=== PATIENT | female | born 2000 ===

== ENCOUNTER 2022-06-28 17:31 | Inpatient (IN) | payer MEDICAID, OTHER ==
[~2022-06-28] VITALS: Ht 154.9 cm; Wt 48.9 kg
[2022-06-28] MEDS ORDERED: ALBUTEROL SULF 2.5 MG/0.5ML(0.5%) NEB SOLN NEB ONE ×3 (17:45→20:45)
[2022-06-28] MEDS ORDERED: IPRATROPIUM BROM 0.5 MG/2.5ML INH SOL NEB ONE (17:45)
[2022-06-28 18:12] LABS: Basophils # (auto) 0.1 10 ^3/uL (0-0.2); Basophils % (auto) 0.6 % (0.0-2.0); Eosinophils # (auto) 0.2 10 ^3/uL (0-0.8); Eosinophils % (auto) 2.3 % (0.0-7.0); Hematocrit 44.7 % (36.0-46.0); Hemoglobin 15.6 g/dL (12.2-16.2); Lymphocytes # (auto) 1.1 10 ^3/uL (0.4-5.4); Lymphocytes % (auto) 11.1 % (10.0-50.0); Mean Corpuscular Hemoglobin 31.3 pg (28.0-32.0); Mean Corpuscular Hgb Conc. 34.8 g/dL (32.0-36.0); Mean Corpuscular Volume 89.8 fL (80.0-100.0); Monocytes # (auto) 0.6 10 ^3/uL (0-1.3); Monocytes % (auto) 6.4 % (0.0-12.0); Neutrophils # (auto) 8.1 10 ^3/uL (1.6-8.6); Neutrophils % (auto) 79.6 % (37.0-80.0); Red Blood Cells 4.98 10^6/uL (4.0-5.20); Red Cell Distribution Width 13.2 % (11.8-14.3); White Blood Cell 10.1 10^3/uL (4.4-10.8)
[2022-06-28] MEDS ORDERED: SODIUM CHLORIDE 0.9% 1,000 ML IV ONE (18:30)
[2022-06-28 18:35] LABS: Albumin 4.7 g/dL (3.4-5.0); Calcium 9.7 mg/dL (8.5-10.1); Potassium 3.6 mmol/L (3.5-5.1)
[2022-06-28 18:44] LABS: BUN/Creatinine Ratio 13.3 (10.0-20.0); Bilirubin, Total 0.7 mg/dL (0.2-1.0); Total Protein 8.5 g/dL (6.4-8.2)
[2022-06-28] MEDS ORDERED: DexAMETHasone SOD PHOS 10MG/1ML VIAL INJ IV ONE (18:45)
[2022-06-28] MEDS: MAGNESIUM SULFATE 1GM/100ML 100 ML IV SCH ×2 (19:06→19:46)
[2022-06-28] MEDS ORDERED: ACETAMINOPHEN 325 MG TAB PO PRN (21:00)
[2022-06-28] MEDS ORDERED: ALBUTEROL SULF 2.5 MG/0.5ML(0.5%) NEB SOLN NEB PRN (21:00)
[2022-06-28] MEDS ORDERED: HYDROCORTONE 1% TOPICAL CREAM 30 GM TUBE TOP ONE (21:00)
[2022-06-28] MEDS ORDERED: SODIUM CHLORIDE 0.9% 1,000 ML IV SCH (21:00)
[2022-06-28 21:06] VITALS: BP 126/85
[2022-06-28] MEDS: IPRATROPIUM BROM 0.5 MG/2.5ML INH SOL NEB SCH (21:48)
[2022-06-28] MEDS: ALBUTEROL SULF 2.5 MG/0.5ML(0.5%) NEB SOLN NEB SCH (21:48)
[2022-06-28] MEDS: HYDROCORTONE 1% TOPICAL CREAM 30 GM TUBE TOP SCH (22:00)
[2022-06-28] MEDS: methylPREDNISolone SOD SUCC 125 MG/2 ML VL IV SCH (22:12)
[2022-06-29] MEDS: IPRATROPIUM BROM 0.5 MG/2.5ML INH SOL NEB SCH ×3 (02:05→10:12)
[2022-06-29] MEDS: ALBUTEROL SULF 2.5 MG/0.5ML(0.5%) NEB SOLN NEB SCH ×3 (02:05→10:12)
[2022-06-29 07:01] LABS: Basophils # (auto) 0 10 ^3/uL (0-0.2); Basophils % (auto) 0.1 % (0.0-2.0); Eosinophils # (auto) 0 10 ^3/uL (0-0.8); Hematocrit 40.6 % (36.0-46.0); Lymphocytes # (auto) 0.5 10 ^3/uL (0.4-5.4); Lymphocytes % (auto) 9.9 % (10.0-50.0); Mean Corpuscular Hemoglobin 30.8 pg (28.0-32.0); Mean Corpuscular Hgb Conc. 34.4 g/dL (32.0-36.0); Mean Corpuscular Volume 89.5 fL (80.0-100.0); Monocytes # (auto) 0.1 10 ^3/uL (0-1.3); Monocytes % (auto) 2.1 % (0.0-12.0); Neutrophils # (auto) 4.7 10 ^3/uL (1.6-8.6); Neutrophils % (auto) 87.9 % (37.0-80.0); Nucleated Red Blood Cells % 0.2 %; Red Blood Cells 4.53 10^6/uL (4.0-5.20); Red Cell Distribution Width 13.3 % (11.8-14.3); White Blood Cell 5.4 10^3/uL (4.4-10.8)
[2022-06-29 07:04] LABS: Albumin 4.2 g/dL (3.4-5.0); BUN/Creatinine Ratio 8.9 (10.0-20.0); Calcium 9.2 mg/dL (8.5-10.1); Potassium 3.6 mmol/L (3.5-5.1)
[2022-06-29 07:07] LABS: Bilirubin, Total 0.5 mg/dL (0.2-1.0); Total Protein 7.8 g/dL (6.4-8.2)
[2022-06-29] MEDS: HYDROCORTONE 1% TOPICAL CREAM 30 GM TUBE TOP SCH (10:00)
[2022-06-29] MEDS ORDERED: LORATADINE 10 MG TAB PO SCH (10:15)
[2022-06-29] MEDS: methylPREDNISolone SOD SUCC 125 MG/2 ML VL IV SCH (10:39)
[2022-06-29] MEDS ORDERED: CETI10CA PO (10:47)
[2022-06-29] MEDS ORDERED: FLUT110A INH (10:47)
[2022-06-29] MEDS ORDERED: ALBUAER3 IN (10:47)
[2022-06-29] MEDS ORDERED: MONT-8 PO (10:47)
[2022-06-29] MEDS ORDERED: PRED20TA2 PO (10:47)
[2022-06-29 12:00] VITALS: BP 128/87
[2022-06-29] MEDS ORDERED: MONTELUKAST SODIUM 10 MG TAB PO SCH (22:00)
== END 2022-06-29 12:39 | disposition home or self-care (01) | DRG 133 ==
LOC: ER 17:31 → OVERFLOW 21:02
PROVIDERS: ADMIT Nurse Practitioner Family; ATTEND Nurse Practitioner
DX: J96.00 Acute respiratory failure, unspecified whether with hypoxia or hypercapnia (principal); J45.901 Unspecified asthma with (acute) exacerbation
CPT/HCPCS: 36415; 71046; 80053; 84702; 85025; 94640; 96361; 96365; 96366; 96374; G0378; J1100

== ENCOUNTER 2023-06-14 00:48 | Inpatient (IN) | payer MEDICAID ==
[2023-06-14] VITALS (8 sets, daily range): BP systolic 118–143; BP diastolic 80–93; PULSE 77–130; RESP 16–24; TEMP 98.2–99.4; O2SAT 92–97
[~2023-06-14] VITALS: Ht 154.9 cm; Wt 52.0 kg
[~2023-06-14 00:48] MED LIST: ALBUAER3 IN; CETI10CA PO; FLUT110A INH; MONT-8 PO; PRED20TA2 PO
[2023-06-14 01:28] LABS: Hematocrit 47.4 % (36.0-46.0); Hemoglobin 16.2 g/dL (12.2-16.2); Mean Corpuscular Hemoglobin 31.7 pg (28.0-32.0); Mean Corpuscular Hgb Conc. 34.2 g/dL (32.0-36.0); Mean Corpuscular Volume 92.8 fL (80.0-100.0); Red Blood Cells 5.11 10^6/uL (4.0-5.20); White Blood Cell 6.4 10^3/uL (4.4-10.8)
[2023-06-14 01:29] LABS: Basophils % (manual) 0 (0.0-2.0); Blast Cells 0; Eosinophils % (manual) 0 (0-7); Metamyelocytes % 0; Monocytes % (manual) 0 (0-12); Myelocytes % 0; Promyelocytes % 0; Reactive Lymphocytes 0
[2023-06-14 01:43] LABS: Alanine Aminotransferase 20 U/L (7-40); Albumin 5.4 g/dL (3.2-4.8); Alkaline Phosphatase 52 U/L (46-116); Anion Gap 12 (5-15); Aspartate Aminotransferase 20 U/L (13-40); Calcium 10.8 mg/dL (8.7-10.4); Carbon Dioxide 21 mmol/L (20-30); Chloride 105 mmol/L (98-107); Glucose 129 mg/dL (74-106); Potassium 3.7 mmol/L (3.5-5.1); Sodium 138 mmol/L (136-145)
[2023-06-14 01:44] LABS: Bilirubin, Total 0.7 mg/dL (0.2-1.0); Total Protein 9.2 g/dL (5.7-8.2)
[2023-06-14 01:46] LABS: BUN/Creatinine Ratio 6.8 (10.0-20.0); Blood Urea Nitrogen < 5 mg/dL (9-23)
[2023-06-14 01:53] LABS: Band Neutrophils % (manual) 1; Lymphocytes % (manual) 5 (10.0-50.0); Platelet Estimate Adequate; RBC Morphology Normal
[2023-06-14 01:53] LABS: Urine Bacteria None Seen /hpf (None Seen)
[2023-06-14 02:14] LABS: Amphetamine Screen, Urine Neg (NEGATIVE); Barbiturate Scree,Urine Neg (NEGATIVE); Benzodiazephine Screen, Urine Neg (NEGATIVE); Cannabinoid Screen, Urine Pos (NEGATIVE); Cocaine Screen, Urine Neg (NEGATIVE); Opiate Scree,Urine Neg (NEGATIVE); Phencyclidine Screen, Urine Neg (NEGATIVE); Urine Blood 2+ /uL (Negative); Urine Clarity Clear (Clear); Urine Color Yellow (Yellow); Urine Hyaline Cast FEW /lpf (0 - 2); Urine Mucus FEW (None Seen); Urine Protein, UAD 1+ (Negative); Urine Specific Gravity 1.026 (1.001-1.035); Urine Urobilinogen Normal (Negative); Urine WBC 1 /hpf (0 - 5)
[2023-06-14] MEDS: SODIUM CHLORIDE 0.9% 1,000 ML IV ONE (07:00)
[2023-06-14] MEDS ORDERED: IPRATROPIUM BROM 0.5 MG/2.5ML INH SOL NEB ONE (07:00)
[2023-06-14] MEDS ORDERED: BUDESONIDE (INHALATION) 0.5 MG/2 ML NEB NEB ONE (07:00)
[2023-06-14] MEDS: LORazepam 2MG/ML-1ML VIAL ONE (07:28)
[2023-06-14] MEDS: MAGNESIUM SULFATE 1GM/100ML 100 ML IV ONE ×2 (07:30→08:32)
[2023-06-14] MEDS: DexAMETHasone SOD PHOS 10MG/1ML VIAL INJ ONE (07:32)
[2023-06-14] MEDS: DexAMETHasone SOD PHOS 10MG/1ML VIAL INJ IV ONE (07:33)
[2023-06-14] MEDS: LORazepam 2MG/ML-1ML VIAL IV ONE (07:33)
[2023-06-14] MEDS: MAGNESIUM SULFATE 1GM/100ML 100 ML IV SCH (07:33)
[2023-06-14] MEDS: ONDANSETRON HCL 4 MG/2 ML VIAL ONE (07:53)
[2023-06-14] MEDS ORDERED: LEVALBUTEROL HCL 1.25 MG/3 ML NEB NEB SCH (12:00)
[2023-06-14] MEDS ORDERED: NITROGLYCERIN 0.4 MG SL TAB SL PRN (12:30)
[2023-06-14] MEDS ORDERED: ONDANSETRON HCL 4 MG/2 ML VIAL IV PRN (12:30)
[2023-06-14] MEDS ORDERED: MORPHINE SULFATE INJ 2 MG/ml SYRG IV PRN (12:30)
[2023-06-14] MEDS ORDERED: TEMAZEPAM 15 MG CAP PO PRN (12:30)
[2023-06-14] MEDS ORDERED: HYDROcodone-ACET 5/325MG TAB PO PRN (12:30)
[2023-06-14] MEDS ORDERED: ACETAMINOPHEN 325 MG TAB PO PRN (12:30)
[2023-06-14] MEDS ORDERED: DOCUSATE SOD 100 MG CAP PO PRN (12:30)
[2023-06-14] MEDS ORDERED: ALPRAZolam 0.25 MG TAB PO PRN (12:45)
[2023-06-14] MEDS: methylPREDNISolone SOD SUCC 125 MG/2 ML VL ONE (13:47)
[2023-06-14] MEDS: methylPREDNISolone SOD SUCC 125 MG/2 ML VL IV SCH (13:51)
[2023-06-14] MEDS ORDERED: METOPROLOL TARTRATE 25 MG TAB ONE ×2 (18:43→21:29)
[2023-06-14] MEDS: METOPROLOL TARTRATE 25 MG TAB PO SCH (18:45)
[2023-06-14 19:47] LABS: COVID19 ANTIGEN SOFIA FIA NEGATIVE (NEGATIVE); Rapid Influenza B Negative (Negative)
[2023-06-14 19:49] LABS: Rapid Influenza A Positive (Negative)
[2023-06-15] VITALS (16 sets, daily range): BP systolic 106–120; BP diastolic 69–79; PULSE 64–100; RESP 14–24; TEMP 97.9–99; O2SAT 93–100
[2023-06-15 06:38] LABS: Basophils # (auto) 0 10 ^3/uL (0-0.2); Eosinophils # (auto) 0 10 ^3/uL (0-0.8); Hematocrit 41.5 % (36.0-46.0); Hemoglobin 14.1 g/dL (12.2-16.2); Lymphocytes # (auto) 0.9 10 ^3/uL (0.4-5.4); Lymphocytes % (auto) 5.7 % (10.0-50.0); Mean Corpuscular Hemoglobin 31.3 pg (28.0-32.0); Mean Corpuscular Hgb Conc. 34.1 g/dL (32.0-36.0); Mean Corpuscular Volume 91.9 fL (80.0-100.0); Monocytes # (auto) 0.9 10 ^3/uL (0-1.3); Monocytes % (auto) 5.6 % (0.0-12.0); Neutrophils # (auto) 13.9 10 ^3/uL (1.6-8.6); Neutrophils % (auto) 88.7 % (37.0-80.0); Nucleated Red Blood Cells % 0.1 %; Red Blood Cells 4.51 10^6/uL (4.0-5.20); Red Cell Distribution Width 12.6 % (11.8-14.3); White Blood Cell 15.7 10^3/uL (4.4-10.8)
[2023-06-15 06:46] LABS: Alanine Aminotransferase 13 U/L (7-40); Albumin 4.8 g/dL (3.2-4.8); Alkaline Phosphatase 41 U/L (46-116); Anion Gap 8 (5-15); Aspartate Aminotransferase 17 U/L (13-40); BUN/Creatinine Ratio 10.3 (10.0-20.0); Blood Urea Nitrogen 7 mg/dL (9-23); Calcium 9.6 mg/dL (8.5-10.1); Carbon Dioxide 24 mmol/L (20-30); Chloride 105 mmol/L (98-107); Glucose 94 mg/dL (74-106); Sodium 137 mmol/L (136-145)
[2023-06-15 06:47] LABS: Bilirubin, Total 0.6 mg/dL (0.2-1.0); Total Protein 7.3 g/dL (5.7-8.2)
[2023-06-15] MEDS: ALBUTEROL SULF 2.5 MG/0.5ML(0.5%) NEB SOLN NEB PRN (07:30)
[2023-06-15] MEDS: OSELTAMIVIR 75 MG CAP PO SCH (10:39)
[2023-06-16] VITALS (8 sets, daily range): BP systolic 106–117; BP diastolic 70–75; PULSE 64–72; RESP 16–22; TEMP 36.3; O2SAT 94–98
[2023-06-16] MEDS ORDERED: METH4PAK PO (09:38)
[2023-06-16] MEDS ORDERED: TAMIFLU PO (13:07)
[2023-06-16] MEDS ORDERED: ALB5IS NEB (13:07)
[2023-06-17 09:08] LABS: Hepatitis B Surface Antigen Negative (Negative)
[2023-06-17 09:29] LABS: Hepatitis C Antibody Negative (Negative)
== END 2023-06-16 14:30 | disposition home or self-care (01) | DRG 133 ==
LOC: ER 00:48 → TELE 12:31 → TELE-WESTW 15:30
PROVIDERS: ADMIT Nurse Practitioner; ATTEND Nurse Practitioner
DX: J96.01 Acute respiratory failure with hypoxia (principal); J45.901 Unspecified asthma with (acute) exacerbation; J10.1 Influenza due to other identified influenza virus with other respiratory manifestations; F17.210 Nicotine dependence, cigarettes, uncomplicated; Z20.822 Contact with and (suspected) exposure to COVID-19; F41.9 Anxiety disorder, unspecified; Z79.51 Long term (current) use of inhaled steroids; Z82.49 Family history of ischemic heart disease and other diseases of the circulatory system; Z79.899 Other long term (current) drug therapy
CPT/HCPCS: 36415; 71045; 80053; 80307; 81001; 81025; 84484; 85007; 85025; 85027; 86803; 87081; 87340; 87426; 87804; 93005; 94640; 96361; 96365; 96375; G0378; J1100; J2405